=== PATIENT | male | born 1960 | race Caucasian/White ===

== ENCOUNTER 2016-11-14 07:29 | Emergency (ER) | payer BC, OTHER ==
[~2016-11-14] VITALS: Ht 180.3 cm; Wt 90.7 kg
[2016-11-14 07:29] VITALS: BP_SYST 123
--- NOTE | 2016-11-14 07:29 | NUR ---
BROUGHT BACK TO BED #7 AND TRIAGED. REPORT GIVEN TO BOLA
--- NOTE | 2016-11-14 07:38 | NUR ---
Assumed care of patient introduced self here for back pain right side ongoing for months worst since last night, placed in gown.
--- NOTE | 2016-11-14 07:42 | NUR ---
MD Whitney at bedside.
[2016-11-14] MEDS ORDERED: fentaNYL CITRATE/PF 100 MCG/2 ML AMP IM ONE (08:00)
[2016-11-14] MEDS ORDERED: ONDANSETRON 4 MG ODT TAB PO ONE (08:00)
--- NOTE | 2016-11-14 08:03 | NUR ---
PATIENT TAKEN TO X-RAY VIA WHEELCHAIR ESCORTED BY X-RAY TECH
[2016-11-14] MEDS ORDERED: PROMETHAZINE HCL 25 MG/ML AMP IM ONE (09:00)
[2016-11-14] MEDS ORDERED: HYDROmorphone 1 MG INJ. 1 MG/ML AMPUL IM ONE (09:00)
--- NOTE | 2016-11-14 09:09 | NUR ---
Pt reassessed continues with back pain no relief from initial pain medication. Orders given to medicate for continued back pain, updated V/S stable.
--- NOTE | 2016-11-14 09:41 | NUR ---
Pt reassessed after medicating for continued back pain. Decreased pain rates 5/10, V/S remain stable. MD Whitney made aware of pt condition.
[2016-11-14 09:42] VITALS: BP_SYST 119
--- NOTE | 2016-11-14 09:50 | NUR ---
Patient given written and verbal discharge instructions and verbalizes understanding. ER MD discussed with patient the results and treatment provided. Patient in stable condition. ID arm band removed. Rx of [place], [place], Naproxen given. Patient educated on pain management and to follow up with PMD. Pain Scale . Opportunity for questions provided and answered.
== END 2016-11-14 09:49 | disposition home or self-care (01) ==
LOC: SED 07:29
DX: M54.5 Low back pain (principal)
CPT/HCPCS: 72100; 96372; 99284; J1170; J2550; J3010; Q0162